=== PATIENT | female | born 1980 | race Asian ===

== ENCOUNTER 2017-01-14 19:33 | Emergency (ER) | payer MEDICAID, OTHER ==
[~2017-01-14] VITALS: Ht 170.2 cm; Wt 63.5 kg
[~2017-01-14 19:33] MED LIST: CIPROFLOXACIN500 M2 ORAL; NKM; PHENAZOPYRIDIN100 MG ORAL
[2017-01-14 19:50] VITALS: BP 98/55
[2017-01-14 20:20] LABS: APPEARANCE,URINE CLEAR; KETONES,URINE NEGATIVE (NEGATIVE); LEUKOCYTE ESTERASE ,URINE NEGATIVE (NEGATIVE); NITRITE,URINE NEGATIVE (NEGATIVE); PH,URINE 6 (4.5-8.0); PROTEIN,URINE NEGATIVE (NEGATIVE); UROBILINOGEN,URINE NORMAL MG/DL (0.0-1.0)
--- NOTE | 2017-01-14 20:39 | Emergency Room Report ---
History of Present Illness General Chief Complaint: Abdominal Pain Source: Patient Present Illness HPI [id number] with "vaginal pain" after inserting "tablet my friend sent me from [facility] to tighten the vagina" a week prior Patient placed inside of vagina, then had sex, and had pain during sex and after Pain is worse with walking, better when sitting, lying down. Pain has been progressively better on its own - denies taking any OTC meds Denies fever/chills, urinary complaints, history of STDs Denies history of ovarian cysts "just had period" as well so doubts Saw PMD a month ago, had "normal pap smear" and negative STD tests. Denies upper abd pain, nausea/vomiting, diarrhea Denies other medical problems Allergies: Uncoded Allergies: DUST, GRASS (Allergy, Unknown, 01/14/17) Patient History Past Medical History: none Past Surgical History: none Pertinent Family History: none Social History: Denies: smoking, alcohol use, drug use Last Menstrual Period: 01/07/17 Now: No : 3 Para: 1 Immunizations: UTD Reviewed Nursing Documentation: PMH: Agreed, PSxH: Agreed Nursing Documentation-PMH Past Medical History: No Stated History Review of Systems All Other Systems: negative except mentioned in HPI Physical Exam Vital Signs Date Time Temp Pulse Resp B/P (MAP) Pulse Ox O2 Delivery O2 Flow Rate FiO2 01/14/17 19:41 97.9 78 15 98/55 99 Room Air Sp02 EP Interpretation: reviewed, normal General Appearance: normal inspection, well appearing, no apparent distress, alert, GCS 15, non-toxic Head: normocephalic, atraumatic Eyes: bilateral eye PERRL, bilateral eye EOMI ENT: normal ENT inspection, hearing grossly normal, normal voice Neck: normal inspection, full range of motion, supple, no bony tend Respiratory: normal inspection, lungs clear, normal breath sounds, no respiratory distress, no retraction, no wheezing Cardiovascular #1: regular rate, rhythm, no edema Gastrointestinal: normal inspection, normal bowel sounds, non tender, soft, no guarding, no hernia Genitourinary: no CVA tenderness, other - Pelvic, done with NATALEE Simmons present during entirety of exam. No vaginal discharge or trauma noted. On bimanual exam , mild/moderate ttp of cervix and right adnexa. No ttp to left adnexa. Musculoskeletal: normal inspection, back normal, normal range of motion, Lesley' s Sign negative Neurologic: normal inspection, alert, responsive, speech normal Psychiatric: normal inspection, judgement/insight normal, mood/affect normal Skin: normal inspection, normal color, no rash Medical Decision Making Diagnostic Impression: Primary Impression: Pelvic pain Additional Impression: Pelvic congestion syndrome ER Course Urine preg negative UA: No blood. No UTI. Pelvic sono: Per tech verbal report: right adnexal increased blood flow, free fluid in pelvis, ?small uterine fibroid Given ttp of cervix will treat empirically for cervicitis however low suspicion for PID given ONE partner, NORMAL U/A, normal STD testing one month prior ?pelvic congestion syndrome given right adnexal dilated veins, pain worse with walking Use of vaginal pill might be distraction from whether she has pelvic insufficiency independently Will also tx with NSAIDs Advised patient come back to ER tomorrow to get full report of ultrasound from Radiology so she can followup up outpatient Patient understands instructions, states she lives close by, will return for worsening symptoms if need be. DC home Last Vital Signs Date Time Temp Pulse Resp B/P (MAP) Pulse Ox O2 Delivery O2 Flow Rate FiO2 01/14/17 19:50 97.9 78 15 98/55 99 Room Air Status: improved Disposition: HOME, SELF-CARE Scripts Ibuprofen* (MOTRIN*) 600 Mg Tablet 600 MG ORAL THREE TIMES A DAY for For Pain for 7 Days, #30 TAB 0 Refills Prov: WILL FITZGERALD M.D. 01/14/17 WILL FITZGERALD M.D. Jan 14, 2017 20:39
[2017-01-14 21:50] VITALS: BP 100/53
[2017-01-14] MEDS ORDERED: IBUPROFEN600 MG ORAL (22:34)
[2017-01-14] MEDS ORDERED: Azithromycin 250mg tab ORAL ONE (22:45)
[2017-01-14] MEDS ORDERED: Lidocaine 1% MPF 10mg/ml 5ml IM ONE (22:45)
[2017-01-14 22:55] VITALS: BP 98/51
--- NOTE | 2017-01-15 08:59 | Diagnostic Imaging Report ---
Indication: Pelvic pain, vaginal pain, bloating Technique: Present on transvaginal images Comparison: None Findings: Uterus measures 9.3 cm in length by 5 cm AP. Endometrium is 5 mm thick. Adjacent to the endometrium there is a small hypoechoic area of calcification which measures 5 mm in diameter, may represent a tiny submucosal fibroid. Fluid is seen within the endocervical canal. There is a 6 mm nabothian cyst within the cervix. Venous or osseous are seen in the right adnexal region. The right ovary itself cannot be demonstrated. The left ovary measures 3.3 cm length. There is free fluid in the cul-de-sac. No adnexal mass demonstrated. Impression: Fluid within the endocervical canal, nonspecific Possible small submucosal uterine fibroid Right adnexal venous varicosities. Raises possibility of ovarian venous insufficiency and possible associated pelvic congestion syndrome. Correlate with clinical history Free pelvic cul-de-sac fluid, most likely physiologic Negative for adnexal mass. Note, however, inability to visualize the right ovary. Incidental finding small cervical nabothian cyst
== END 2017-01-14 22:55 | disposition home or self-care (01) ==
LOC: CANBEDREQ 20:08 → EMR 20:59
DX: R10.2 Pelvic and perineal pain (principal); N94.89 Other specified conditions associated with female genital organs and menstrual cycle
CPT/HCPCS: 76856; 81003; 81025; 96372; 99284; J0696; Q0144

== ENCOUNTER 2017-02-28 19:16 | Emergency (ER) | payer MEDICAID, OTHER ==
[~2017-02-28] VITALS: Ht 170.2 cm; Wt 65.8 kg
[~2017-02-28 19:16] MED LIST changes: +IBUPROFEN600 MG ORAL
[2017-02-28 19:44] VITALS: BP 102/60
[2017-02-28 20:09] VITALS: BP 108/64
--- NOTE | 2017-02-28 22:24 | Emergency Room Report ---
History of Present Illness General Chief Complaint: Pain Source: Patient Present Illness HPI The patient is a 36-year-old female presenting for breast pain. She admits to history of breast augmentation approximately 10 years prior without any known complications. Pain is described as an 8/10 dull ache which began at the right breast yesterday which resolved and is now at the left breast. She denies radiating pain at this time. Pain is worse with touch and deep breaths. She denies any rash or discharge. She states that she had similar pain approximately 1 month prior while she was traveling and had extensive testing done as well as echo which was unremarkable. She denies any medical history. She denies any other symptoms including N, V, F, chills, SOB, CP, cough Allergies: Uncoded Allergies: DUST, GRASS (Allergy, Unknown, 01/14/17) Patient History Past Medical History: see triage record Pertinent Family History: none Last Menstrual Period: Feb Reviewed Nursing Documentation: PMH: Agreed, PSxH: Agreed Nursing Documentation-PMH Past Medical History: No Stated History Review of Systems All Other Systems: negative except mentioned in HPI Physical Exam Vital Signs Date Time Temp Pulse Resp B/P (MAP) Pulse Ox O2 Delivery O2 Flow Rate FiO2 02/28/17 19:18 97.7 79 16 98/58 98 Room Air Sp02 EP Interpretation: reviewed, normal General Appearance: no apparent distress, alert, GCS 15, non-toxic Head: normocephalic, atraumatic Eyes: bilateral eye normal inspection, bilateral eye PERRL ENT: hearing grossly normal, normal pharynx, no angioedema, normal voice Respiratory: chest non-tender, lungs clear, normal breath sounds, speaking full sentences, other - done with nurse Lucille in room, chest symmetrical, palpation of chest normal Genitourinary: normal inspection, no CVA tenderness Musculoskeletal: back normal, gait/station normal, normal range of motion, non- tender Neurologic: alert, oriented x3, responsive, motor strength/tone normal, sensory intact, speech normal Psychiatric: judgement/insight normal, memory normal, mood/affect normal, no suicidal/homicidal ideation Skin: normal color, no rash, warm/dry, well hydrated Medical Decision Making PA Attestation Dr. Rivera is my supervising physician. Patient management was discussed with my supervising physician Diagnostic Impression: Primary Impression: Chest pain Qualified Codes: R07.9 - Chest pain, unspecified ER Course The patient is a 36-year-old female presenting for breast pain. Ddx considered include but not limited to mastitis, abscess, malignancy, muscle strain, ACS, among others Physical exam: afebrile. No apparent distress RRR Lungs are clear to auscultation bilaterally. Breast exam done with nurse Lucille and room. Nontender. No masses palpated. No discharge. breasts are symmetrical. No skin changes EKG and chest x-ray both unremarkable The patient will followup with her primary doctor. she states that she has appointment next week. ER precautions given EKG Diagnostic Results EP Interpretation: NSR. No acute changes Rate: normal - 60 Rhythm: NSR ST Segments: no acute changes ASA given to the pt in ED: No PA Scribe Text EKG was reviewed and read with my supervising physician. No acute ST segment changes are seen. Normal rate and rhythm. No acute changes. Chest X-Ray Diagnostic Results Chest X-Ray Diagnostic Results : Chest X-Ray Ordered: Yes # of Views/Limited/Complete: 1 View Indication: Chest Pain EP Interpretation: Yes PA Xray: Interpretation reviewed, by supervising MD, and agrees with findings. Interpretation: no consolidation, no effusion, no pneumothorax, no acute cardiopulmonary disease Impression: No acute disease Electronically Signed by: Maverick Cooper PA-C Last Vital Signs Date Time Temp Pulse Resp B/P (MAP) Pulse Ox O2 Delivery O2 Flow Rate FiO2 02/28/17 20:09 97.7 76 19 108/64 99 Room Air Status: improved Disposition: HOME, SELF-CARE Condition: Improved Referrals: [facility],REFERRING (PCP) Patient Instructions: Nonspecific Chest Pain Additional Instructions: I discussed my findings with the patient. All questions and concerns have been answered. Treatment and medication compliance have been addressed. Return to ED if symptoms worsen, new symptoms arise, or if needed for any reason. Patient verbalized understanding of discharge instructions. Please follow up with her primary doctor next week as we discussed and use Motrin every 8 hours MAVERICK COOPER Feb 28, 2017 22:24
--- NOTE | 2017-03-03 11:00 | Cardiology Report ---
APPROVED REPORT EKG Measurement Heart [id number] Normal sinus rhythm Normal ECG
--- NOTE | 2017-03-03 11:02 | Diagnostic Imaging Report ---
Indication: Chest pain Technique: One view of the chest Comparison: none Findings: Lungs and pleural spaces are clear. Heart size is normal. There is minimal thoracic scoliotic deformity Impression: No acute process
== END 2017-02-28 20:10 | disposition home or self-care (01) ==
LOC: EMR 19:50
DX: R07.9 Chest pain, unspecified (principal)
CPT/HCPCS: 71010; 93005; 99283

== ENCOUNTER 2019-02-13 20:18 | Emergency (ER) | payer MEDICAID ==
[~2019-02-13] VITALS: Ht 170.2 cm; Wt 63.5 kg
[2019-02-13 20:43] VITALS: BP 96/51
[2019-02-13] MEDS ORDERED: Acetaminophen 500mg (ES) tab ORAL ONE (21:00)
--- NOTE | 2019-02-13 21:03 | Emergency Room Report ---
History of Present Illness General Chief Complaint: Chest Pain Source: Patient Present Illness HPI 38-year-old female no past medical history other than breast mentation presents with left-sided chest pain that started 1 day prior to arrival, constant not aggravated with walking no shortness of breath aggravated by moving around and moving her left arm, severity is mild, intermittent, not aggravated with running no family history of cardiac disease, patient has not had a stress test she denies any dyspnea on exertion no diaphoresis. Patient also reports as an aside that she ran into a glass screen a month ago and has had intermittent headaches. Allergies: Uncoded Allergies: DUST, GRASS (Allergy, Unknown, 01/14/17) Patient History Past Medical History: see triage record Last Menstrual Period: current Reviewed Nursing Documentation: PMH: Agreed; PSxH: Agreed Review of Systems All Other Systems: negative except mentioned in HPI Physical Exam Vital Signs Date Time Temp Pulse Resp B/P (MAP) Pulse Ox O2 Delivery O2 Flow Rate FiO2 02/13/19 20:34 98.4 75 18 96/51 (66) 100 Room Air Sp02 EP Interpretation: reviewed, normal General Appearance: well appearing, no apparent distress, alert Head: normocephalic, atraumatic Eyes: bilateral eye PERRL, bilateral eye EOMI ENT: uvula midline, moist mucus membranes Neck: supple, thyroid normal, supple/symm/no masses Respiratory: lungs clear, no respiratory distress, no retraction, no accessory muscle use Cardiovascular #1: normal peripheral pulses, regular rate, rhythm, no edema, no gallop, no murmur Gastrointestinal: non tender, soft, no guarding, no rebound Musculoskeletal: normal inspection Neurologic: alert, oriented x3 Psychiatric: mood/affect normal Skin: no rash, warm/dry Medical Decision Making Diagnostic Impression: Primary Impression: Chest pain Qualified Codes: R07.9 - Chest pain, unspecified Additional Impression: Concussion Qualified Codes: S06.0X0A - Concussion without loss of consciousness, initial encounter ER Course No evidence of ACS, pulmonary embolism, pneumothorax, pneumonia. Historically not abrupt in onset, tearing or ripping, pulses symmetric, no evidence of aortic dissection. Patient with atypical chest pain Troponin neg EKG neg, CXR neg Patient additionally with GOODE x 1 month after running into a wall CT head no acute processes, most likely post concussive Counseled patient Dispo home w/ return precautions Laboratory Tests Test 02/13/19 21:09 02/13/19 21:29 White Blood Count 5.9 K/UL (4.8-10.8) Red Blood Count 4.63 M/UL (4.20-5.40) Hemoglobin 15.0 G/DL (12.0-16.0) Hematocrit 41.0 % (37.0-47.0) Mean Corpuscular Volume 89 FL (80-99) Mean Corpuscular Hemoglobin 32.3 PG (27.0-31.0) H Mean Corpuscular Hemoglobin Concent 36.5 G/DL (32.0-36.0) H Red Cell Distribution Width 10.4 % (11.6-14.8) L Platelet Count 167 K/UL (150-450) Mean Platelet Volume 6.1 FL (6.5-10.1) L Neutrophils (%) (Auto) 52.4 % (45.0-75.0) Lymphocytes (%) (Auto) 34.7 % (20.0-45.0) Monocytes (%) (Auto) 9.1 % (1.0-10.0) Eosinophils (%) (Auto) 2.7 % (0.0-3.0) Basophils (%) (Auto) 1.0 % (0.0-2.0) Sodium Level 146 MMOL/L (136-145) H Potassium Level 4.4 MMOL/L (3.5-5.1) Chloride Level 108 MMOL/L (98-107) H Carbon Dioxide Level 30 MMOL/L (21-32) Anion Gap 9 mmol/L (5-15) Blood Urea Nitrogen 17 mg/dL (7-18) Creatinine 0.8 MG/DL (0.55-1.30) Estimate Glomerular Filtration Rate > 60 mL/min (>60) Glucose Level 108 MG/DL (74-106) H Calcium Level 9.1 MG/DL (8.5-10.1) Total Bilirubin 0.4 MG/DL (0.2-1.0) Aspartate Amino Transferase (AST) 19 U/L (15-37) Alanine Aminotransferase (ALT) 26 U/L (12-78) Alkaline Phosphatase 76 U/L (46-116) Troponin I 0.000 ng/mL (0.000-0.056) Total Protein 7.8 G/DL (6.4-8.2) Albumin Pending Globulin Pending Urine HCG, Qualitative Pending EKG Diagnostic Results EKG Time: 20:31 EP Interpretation: NSR, rate 64, QTc 422, no acute ST elevations normal axis Rhythm Strip Diag. Results Rhythm Strip Time: 21:02 EP Interpretation: yes Rate: 64 Rhythm: NSR, no PVC's, no ectopy Chest X-Ray Diagnostic Results Chest X-Ray Diagnostic Results : Chest X-Ray Ordered: Yes # of Views/Limited/Complete: 1 View Indication: Chest Pain EP Interpretation: Yes Interpretation: no consolidation, no effusion, no pneumothorax, no acute cardiopulmonary disease Impression: No acute disease Electronically Signed by: Jimmy Prajapati MD CT/MRI/US Diagnostic Results CT/MRI/US Diagnostic Results : Impression Preliminary Findings Only See Final Report For Complete Findings CT HEAD Without Contrast: No ICH, mass effect or edema. No skull fracture. Radiologist: Ghulam Smith MD Study ready at 21:30 and initial results transmitted at 22:04 Last Vital Signs Date Time Temp Pulse Resp B/P (MAP) Pulse Ox O2 Delivery O2 Flow Rate FiO2 02/13/19 20:43 98.4 18 96/51 100 Room Air 02/13/19 20:43 75 Disposition: HOME, SELF-CARE Condition: Stable Referrals: NON PHYSICIAN (PCP) [facility] Patient Instructions: Concussion, Adult, [id number], Nonspecific Chest Pain Additional Instructions: The patient was provided with discharge instructions, notified to follow-up with a primary care doctor and or specialist in the next 24-48 hours, and to return to the ED if they have worsening of their symptoms. Please note that this report is being documented using [employer] technology. This can lead to erroneous entry secondary to incorrect interpretation by the dictating instrument. Jimmy Prajapati MD Feb 13, 2019 21:03
[2019-02-13 21:23] LABS: EOSINOPHILS % (AUTO) 2.7 % (0.0-3.0); LYMPHOCYTES % (AUTO) 34.7 % (20.0-45.0); MEAN CORPUSCULAR VOLUME 89 FL (80-99); MONOCYTES % (AUTO) 9.1 % (1.0-10.0); NEUTROPHILS % (AUTO) 52.4 % (45.0-75.0); PLATELET COUNT 167 K/UL (150-450); RED BLOOD COUNT 4.63 M/UL (4.20-5.40); RED CELL DISTRIBUTION WIDTH 10.4 % (11.6-14.8); WHITE BLOOD COUNT 5.9 K/UL (4.8-10.8)
[2019-02-13 21:29] LABS: ANION GAP 9 mmol/L (5-15); BLOOD UREA NITROGEN 17 mg/dL (7-18); CALCIUM 9.1 MG/DL (8.5-10.1); CARBON DIOXIDE 30 MMOL/L (21-32); CHLORIDE 108 MMOL/L (98-107); CREATININE 0.8 MG/DL (0.55-1.30); POTASSIUM 4.4 MMOL/L (3.5-5.1); SODIUM 146 MMOL/L (136-145)
[2019-02-13 21:34] LABS: ALANINE AMINOTRANSFERASE 26 U/L (12-78); ALKALINE PHOSPHATASE 76 U/L (46-116); ASPARTATE AMINO TRANSFERASE 19 U/L (15-37); BILIRUBIN,TOTAL 0.4 MG/DL (0.2-1.0)
--- NOTE | 2019-02-13 22:05 | Diagnostic Imaging Report ---
Indication: Head pain, status post fall Technique: Continuous helical CT scanning of the head was performed without intravenous contrast material. Axial and coronal 5 mm sections were generated. Radiation dose was minimized using automated exposure control Dose: Total Dose Length Product - DLP [address] Dose Index - CTDIvol(s) 60 mGy. Comparison: none Findings: The ventricular system is normal in size and configuration. There is no shift of midline structures. No abnormal extra-axial fluid collections are noted. There is no evidence of intracerebral bleeding. No other abnormal high or low density areas are noted within the brain. Impression: Normal CT scan of the head without contrast material. This agrees with the preliminary interpretation provided overnight by [facility] teleradiology service. The CT scanner at [facility] is accredited by the [employer] and the scans are performed using protocols designed to limit radiation exposure to as low as reasonably achievable to attain images of sufficient resolution adequate for diagnostic evaluation.
[2019-02-13 22:11] VITALS: BP 96/51
--- NOTE | 2019-02-14 11:34 | Diagnostic Imaging Report ---
Indication: Chest pain Technique: One view of the chest Comparison: none Findings: Lungs and pleural spaces are clear. Heart size is normal. No significant change Impression: No acute process
--- NOTE | 2019-02-14 15:00 | Cardiology Report ---
APPROVED REPORT EKG Measurement Heart [id number] Normal sinus rhythm Normal ECG
== END 2019-02-13 22:12 | disposition home or self-care (01) ==
LOC: EMR 20:46
DX: R07.9 Chest pain, unspecified (principal); S06.0X0A Concussion without loss of consciousness, initial encounter; W22.8XXA Striking against or struck by other objects, initial encounter; Y93.02 Activity, running; Y92.9 Unspecified place or not applicable; Z91.09 Other allergy status, other than to drugs and biological substances
CPT/HCPCS: 36415; 70450; 71045; 80053; 81025; 84484; 85025; 93005; Z7502; 99284